=== PATIENT | female | born 1980 | race Caucasian/White ===

== ENCOUNTER 2016-04-16 13:31 | Emergency (ER) | payer OTHER ==
[~2016-04-16] VITALS: Wt 82.0 kg
[~2016-04-16 13:31] MED LIST: ALBU8.5H3 INH; CALC-134 PO; FERR325C PO; PRENAT PO
[2016-04-16] MEDS ORDERED: IBUP-1542 PO (14:24)
[2016-04-16] MEDS ORDERED: ALBU8.5H3 INH (14:24)
[2016-04-16] MEDS ORDERED: ACET500C5 PO (14:24)
[2016-04-16] MEDS ORDERED: PRED20TA PO (14:25)
[2016-04-16] MEDS ORDERED: AZIT250T94 PO (14:27)
[2016-04-16] MEDS ORDERED: CETI10CA PO (14:27)
--- NOTE | 2016-04-16 14:36 | ERD ---
ER Documentation Chief Complaint Date/Time DATE: 04/16/16 TIME: 14:30 Chief Complaint WHEEZING COUGHING WITH PHLEGM FOR THE PAST 4 DAYS. HPI Assessment 35-year-old female who presents to the emergency department today complaining of cough, body aches, chills, congestion past 4 days and wheezing that started today. Patient states she is out of her asthma medication currently and tried calling her doctor but she could not get in today. Denies any vomiting or diarrhea ROS All systems reviewed and are negative except as per history of present illness. Medications Home Meds Active Scripts Cetirizine Hcl* (Zyrtec*) 10 Mg Capsule, 10 MG PO DAILY, #10 TAB.CHEW Prov:LENORA CARRINGTON PA-C 04/16/16 Azithromycin* (Zithromax*) 250 Mg Tablet, 250 MG PO .ZPACK DIRECTED, #6 TAB TAKE 500 MG (2 TABS) THE FIRST DAY THEN 250 MG (1 TAB) DAYS 2-5 Prov:LENORA CARRINGTON PA-C 04/16/16 Prednisone* (Prednisone*) 20 Mg Tab, 40 MG PO DAILY for 4 Days, TAB Prov:LENORA CARRINGTON PA-C 04/16/16 Albuterol Sulfate* (Proair HFA*) 8.5 Gm Hfa.aer.ad, 2 PUFF INH Q4, #1 INHALER Prov:LENORA CARRINGTON PA-C 04/16/16 Acetaminophen* (Tylophen*) 500 Mg Capsule, 1 CAP PO Q6H Y for PAIN AND OR ELEVATED TEMP, #30 CAP Prov:LENORA CARRINGTON PA-C 04/16/16 Ibuprofen* (Motrin*) 600 Mg Tab, 600 MG PO Q6, #30 TAB Prov:LENORA CARRINGTON PA-C 04/16/16 Reported Medications Calcium Carbonate/Vitamin D3 (Calcium + Vitamin D Tablet) 1 Tab Tablet, 1 TAB PO DAILY 01/14/15 Ferrous Sulfate (Iron) 325 Mg Capsr, 325 MG PO BID 01/14/15 Multivit/Min/Fol Ac/Iron/Pren* ( S*) 1 Tab Tab, 1 TAB PO DAILY, TAB 01/14/15 Albuterol Sulfate* (Proair HFA*) 8.5 Gm Hfa.aer.ad, 1-2 PUFF INH Q4-6 HOURS Y for WHEEZING AND SOB, INH 03/20/14 Allergies Allergies: Coded Allergies: No Known Allergies (Verified Allergy, Unknown, 03/20/14) PMhx/Soc History of Surgery: No Anesthesia Reaction: No Hx Neurological Disorder: No Hx Respiratory Disorders: Yes (ASTHMA) Hx Cardiac Disorders: No Hx Psychiatric Problems: No Hx Miscellaneous Medical Probl: No Hx Alcohol Use: No Hx Substance Use: No Hx Tobacco Use: No Physical Exam Vitals Vital Signs Date Time Temp Pulse Resp B/P Pulse Ox O2 Delivery O2 Flow Rate FiO2 04/16/16 13:51 99.5 112 24 121/70 97 Physical Exam Const: Laughing, talking, no acute distress Head: Atraumatic Eyes: Normal Conjunctiva ENT: Ears TMs normal. Nose no drainage. Throat no erythema no exudate Neck: Full range of motion..~ No meningismus. Resp: Diffuse wheezing bilaterally Cardio: Regular rate and rhythm, no murmurs Abd: Soft, non tender, non distended. Normal bowel sounds Skin: No petechiae or rashes Neur: Awake and alert Psych: Normal Mood and Affect Procedures/MDM This is a 35-year-old female who presents emergency Department today with signs and symptoms consistent with influenza. The symptoms have been dieting for the past 4 days and I do not felt the patient would benefit from Tamiflu at this time. She is afebrile here in the emergency department. She was tachycardic at 112 and respirations were 24 here in the emergency department. Her oxygen saturation is 97. Patient did have diffuse wheezing on physical examination did offer to give the patient breathing treatment as she is being seen here in [facility]. Patient indicated that her asthma is usually well-controlled with her inhaler however she has been out of her medication. Patient did indicate that she was comfortable going home with prednisone and her inhalers if usually what she takes and she gets an asthma flare. Upon review of patient's medical evaluations patient has not been seen here in this emergency department at least for the past year and a half for any acute asthma exacerbation. I did also give the patient prescription for azithromycin for possible URI bacterial infection versus pneumonia. Did also give the patient prescription for Zyrtec and Tylenol and Motrin. Patient was instructed to return immediately to emergency department for any worsening of symptoms or difficulty breathing or shortness of breath. Again patient indicated that she was fine going home she had kids that she wanted to take care of and her symptoms are usually resolved with her inhaler. Patient is talking and laughing with both myself and the registration person and she is in no acute distress. Do not feel the patient requires a chest x-ray at this time as I have low suspicion for PE, abscess, pneumothorax. I have low suspicion for strep pharyngitis, peritonsillar abscess, retropharyngeal abscess, otitis media, , sinusitis, abscess, meningitis, sepsis , or other acute infectious bacterial process. At this time the patient is stable for discharge and outpatient management. They should follow up with their PCP in the next 1-2. They may return to the emergency department sooner if symptoms persist or worsen. Patient understood and agreed with the plan. Departure Diagnosis: Primary Impression: Influenza-like symptoms Additional Impression: Asthma exacerbation Condition: Fair Patient Instructions: Controlling Asthma Triggers: Other, Influenza (Adult) Additional Instructions: Call your primary care doctor TOMORROW for an appointment during the next 1-2 days.See the doctor sooner or return here if your condition worsens before your appointment time. Take prednisone and albuterol for asthma exacerbation Take azithromycin and Zyrtec as prescribed Take ibuprofen or Motrin for pain or fever LENORA CARRINGTON PA-C Apr 16, 2016 14:36
== END 2016-04-16 14:31 | disposition home or self-care (01) ==
LOC: FTE 13:31 → E/R 14:31
DX: R05 Cough (principal); R09.81 Nasal congestion; J45.901 Unspecified asthma with (acute) exacerbation
CPT/HCPCS: 99284

== ENCOUNTER 2018-10-30 23:52 | Emergency (ER) | payer OTHER ==
[~2018-10-30] VITALS: Ht 162.6 cm; Wt 97.3 kg
[~2018-10-30 23:52] MED LIST changes: +ACET500C5 PO; +ALBU18HF INHALATION; -ALBU8.5H3 INH; +ALBU8.5H8 INH; +AZIT250T PO; +CETI10CA PO; +IBUP-1542 PO; +PRED20TA PO
[2018-10-31 00:11] VITALS: Ht 162.6 cm; Wt 97.3 kg
[2018-10-31] MEDS ORDERED: predniSONE 20 MG TAB PO STA (00:46)
[2018-10-31] MEDS ORDERED: ALBUTEROL 0.083% (NEB) 2.5 MG/3 ML AMP NEB STA (00:46)
[2018-10-31] MEDS ORDERED: IPRATROPIUM (NEB) 0.5 MG/2.5 ML AMP NEB STA (00:46)
[2018-10-31] MEDS ORDERED: LORAZEPAM 1 MG TAB PO ONE (01:30)
--- NOTE | 2018-10-31 01:55 | ERD ---
ER Documentation Chief Complaint Chief Complaint SOB, chest pain/heaviness, feeling cold in the arm & feet since yesterday HPI Patient is a 38-year-old female with asthma who presents with not feeling well. She said that for the past few days she has had shortness of breath. She said that her feet and hands were cold and she felt a heaviness in her chest. The chest pain was right-sided. She said that she was unsure if this was her asthma . She does feel anxious recently as well because of her recent miscarriage. Upon review of old medical record the patient has multiple visits to the ER for various complaints. The patient goes to a local clinic for her care. ROS All systems reviewed and are negative except as per history of present illness. Medications Home Meds Active Scripts Prednisone* (Prednisone*) 20 Mg Tab, 60 MG PO DAILY for 4 Days, TAB Prov:MATHEW SIMEON MD 10/31/18 Albuterol Sulfate* (Ventolin HFA*) 18 Gm Hfa.aer.ad, 2 PUFF INHALATION Q4H, #1 INHALER Prov:MATHEW SIMEON MD 10/31/18 Cetirizine Hcl* (Zyrtec*) 10 Mg Capsule, 10 MG PO DAILY, #30 TAB.CHEW Prov:KENYATTA ARRIAGA PA-C 05/04/18 Albuterol Sulfate* (Proair HFA*) 8.5 Gm Hfa.aer.ad, 2 PUFF INH Q4H PRN for WHEEZING AND SOB, #1 INHALER Prov:KENYATTA ARRIAGA PA-C 05/04/18 Cetirizine Hcl* (Zyrtec*) 10 Mg Capsule, 10 MG PO DAILY, #10 TAB.CHEW Prov:LENORA CARRINGTON PA-C 04/16/16 Azithromycin* (Zithromax*) 250 Mg Tablet, 250 MG PO .TINY DIRECTED, #6 TAB TAKE 500 MG (2 TABS) THE FIRST DAY THEN 250 MG (1 TAB) DAYS 2-5 Prov:LENORA CARRINGTON PA-C 04/16/16 Prednisone* (Prednisone*) 20 Mg Tab, 40 MG PO DAILY for 4 Days, TAB Prov:LENORA CARRINGTON PA-C 04/16/16 Albuterol Sulfate* (Proair HFA*) 8.5 Gm Hfa.aer.ad, 2 PUFF INH Q4, #1 INHALER Prov:GEORGELENORA Crowder PA-C 04/16/16 Acetaminophen* (Tylophen*) 500 Mg Capsule, 1 CAP PO Q6H PRN for PAIN AND OR ELEVATED TEMP, #30 CAP Prov:CHARISSALENROA Crowder PA-C 04/16/16 Ibuprofen* (Motrin*) 600 Mg Tab, 600 MG PO Q6, #30 TAB Prov:CHARISSALENORA Crowder PA-C 04/16/16 Reported Medications Calcium Carbonate/Vitamin D3 (Calcium + Vitamin D Tablet) 1 Tab Tablet, 1 TAB PO DAILY 01/14/15 Ferrous Sulfate (Iron) 325 Mg Capsr, 325 MG PO BID 01/14/15 Multivit/Min/Fol Ac/Iron/Pren* ( S*) 1 Tab Tab, 1 TAB PO DAILY, TAB 01/14/15 Albuterol Sulfate* (Proair HFA*) 8.5 Gm Hfa.aer.ad, 1-2 PUFF INH Q4-6 HOURS PRN for WHEEZING AND SOB, INH 03/20/14 Allergies Allergies: Coded Allergies: No Known Allergies (Verified Allergy, Unknown, 05/04/18) PMhx/Soc Medical and Surgical Hx: pt denies Surgical Hx History of Surgery: No Anesthesia Reaction: No Hx Neurological Disorder: No Hx Respiratory Disorders: Yes (ASTHMA) Hx Cardiac Disorders: No Hx Psychiatric Problems: No Hx Miscellaneous Medical Probl: No Hx Alcohol Use: No Hx Substance Use: No Hx Tobacco Use: No Smoking Status: Never smoker FmHx Family History: coronary disease Physical Exam Vitals Vital Signs Date Temp Pulse Resp B/P (MAP) Pulse Ox O2 O2 Flow FiO2 Time Delivery Rate 10/31/18 98 20 99 21 00:59 10/31/18 97 26 121/64 99 Room Air 00:55 (83) 10/31/18 98.9 99 18 135/83 98 00:11 (100) Physical Exam Const: No acute distress Head: Atraumatic Eyes: Normal Conjunctiva ENT: Normal External Ears, Nose and Mouth. Neck: Full range of motion. No meningismus. Resp: Diffuse expiratory wheezing in all lung petersen Cardio: Regular rate and rhythm, no murmurs Abd: Soft, non tender, non distended. Normal bowel sounds Skin: No petechiae or rashes Back: No midline or flank tenderness Ext: No cyanosis, or edema Neur: Awake and alert Psych: Normal Mood and Affect Results 24 hrs Laboratory Tests Test 10/31/18 01:31 POC Beta HCG, Qualitative NEGATIVE Current Medications Medications Dose Sig/Sanket Start Time Status Last (Trade) Ordered Route PRN Stop Time Admin Dose Reason Admin Albuterol 5 mg ONCE STAT 10/31/18 DC 10/31/18 (Proventil NEB 00:46 00:56 0.083% (Neb)) 10/31/18 00:47 Ipratropium 0.5 mg ONCE STAT 10/31/18 DC 10/31/18 [place] NEB 00:46 00:56 (Atrovent 10/31/18 00:47 0.02% (Neb)) Prednisone 60 mg ONCE STAT 10/31/18 DC 10/31/18 (Prednisone) PO 00:46 01:27 10/31/18 00:47 Lorazepam 1 mg ONCE ONCE 10/31/18 DC 10/31/18 (Ativan) PO 01:30 01:27 10/31/18 01:31 Procedures/MDM EKG read by me: Rate/Rhythm: Regular rate and rhythm at a rate of 93 Intervals: Normal Impression: No evidence of ischemia or arrhythmia Patient is a 38-year-old female with asthma who presents with shortness of breath. She is wheezing I believe this is an acute asthma exacerbation. She feels much better after albuterol, Atrovent, and prednisone. The patient will be discharged home with a prescription for Ventolin and 4 more days of prednisone. However she will need to follow-up closely with her primary doctor within the next 24 to 48 hours. At this point I doubt acute coronary syndrome, ammonia, pneumothorax, pulmonary embolism, or aortic dissection. EKG was normal. The patient can return to the ER for any worsening symptoms. Departure Diagnosis: Primary Impression: Shortness of breath Additional Impression: Asthma Asthma severity: unspecified severity Asthma persistence: unspecified Asthma complication type: with acute exacerbation Qualified Codes: J45.901 - Unspecified asthma with (acute) exacerbation Condition: Fair Patient Instructions: Asthma, Acute (Adult) Referrals: KADEEM GARNICA (PCP) Additional Instructions: Call your primary care doctor TOMORROW for an appointment during the next 1-2 days.See the doctor sooner or return here if your condition worsens before your appointment time. MATHEW SIMEON MD Oct 31, 2018 01:55
[2018-10-31 02:20] VITALS: BP 118/83; PULSE 95; RESP 16
== END 2018-10-31 02:30 | disposition home or self-care (01) ==
LOC: E/R 23:52
DX: J45.901 Unspecified asthma with (acute) exacerbation (principal)
CPT/HCPCS: 81025; 94664; J7512; Z7502; Z7610; 93005

== ENCOUNTER 2018-11-21 19:58 | Emergency (ER) | payer OTHER ==
[~2018-11-21] VITALS: Ht 165.1 cm; Wt 97.7 kg
[~2018-11-21 19:58] MED LIST changes: +NAPR-985 PO
[2018-11-21 20:09] VITALS: Ht 165.1 cm; Wt 97.7 kg
[2018-11-21] MEDS ORDERED: LIDOCAINE 2% (MDV) 20 ML INJ INJ STA (21:59)
[2018-11-21] MEDS ORDERED: SILVER NITRATE SWAB TOP ONE (22:30)
[2018-11-21] MEDS ORDERED: DIPHTH/TET/ACEL PERTUSS (ADULT) 0.5 ML VIAL IM* ONE (22:30)
[2018-11-21] MEDS ORDERED: HYDROCODONE/APAP (5/325) TAB PO ONE (23:30)
[2018-11-22 00:41] VITALS: BP 118/57; PULSE 85; RESP 18
== END 2018-11-22 00:41 | disposition home or self-care (01) ==
LOC: FTE 19:58
DX: S61.012A Laceration without foreign body of left thumb without damage to nail, initial encounter (principal); J45.909 Unspecified asthma, uncomplicated; W26.0XXA Contact with knife, initial encounter; Y92.9 Unspecified place or not applicable
CPT/HCPCS: 64450; 90471; 90715; Z7502; Z7610